=== PATIENT | female | born 1955 | race Caucasian/White ===

== ENCOUNTER → 2017-02-22 | Outpatient (CLI) | payer OTHER ==
[~2017-02-22] MED LIST: ASPI-515 PO; ATOR20TA9 PO; LISI-167 PO; SULF1TAB24 PO
== END | disposition home or self-care (01) ==
LOC: ROC 08:11
PROVIDERS: ATTEND Radiology Radiation Oncology
DX: C34.11 Malignant neoplasm of upper lobe, right bronchus or lung (principal); E04.1 Nontoxic single thyroid nodule; M85.652 Other cyst of bone, left thigh; J43.9 Emphysema, unspecified; E21.3 Hyperparathyroidism, unspecified; Z90.49 Acquired absence of other specified parts of digestive tract; Z90.12 Acquired absence of left breast and nipple
CPT/HCPCS: 99214; G0463

== ENCOUNTER 2017-03-19 10:37 | Day surgery (SDC) | payer OTHER ==
[~2017-03-19] VITALS: Ht 162.6 cm; Wt 86.7 kg
[2017-03-19] MEDS ORDERED: ATOR20TA9 PO (11:18)
[2017-03-19] MEDS ORDERED: LISI-167 PO (11:18)
[2017-03-19] MEDS ORDERED: ASPI-496 PO (11:19)
[2017-03-19] MEDS ORDERED: ONDA4TAB7 PO (11:20)
[2017-03-19] MEDS ORDERED: SODIUM CHLORIDE 0.9% 1,000 ML IV SCH (11:20)
[2017-03-19 11:21] VITALS: BP 150/87
[2017-03-19] MEDS ORDERED: CEFAZOLIN PMX 1GM/50ML 50 ML IV ONE (11:30)
[2017-03-19] MEDS ORDERED: CEFAZOLIN PMX 1GM/50ML 50 ML ONE (11:31)
[2017-03-19] MEDS ORDERED: LIDOCAINE 2%, 20ML ONE (11:57)
[2017-03-19] MEDS ORDERED: NALOXONE 1 MG/ML, 2ML ONE (12:05)
[2017-03-19] MEDS ORDERED: FLUMAZENIL 0.1 MG/1 ML, 5ML ONE (12:05)
[2017-03-19] MEDS ORDERED: FENTANYL PF 100 MCG/2ML ONE (12:05)
[2017-03-19] MEDS ORDERED: MIDAZOLAM 1 MG/ML, 5ML ONE (12:05)
== END 2017-03-19 14:15 ==
LOC: OUT 10:37
PROVIDERS: ATTEND Internal Medicine Hematology & Oncology
DX: Z45.2 Encounter for adjustment and management of vascular access device (principal); C34.90 Malignant neoplasm of unspecified part of unspecified bronchus or lung; Z88.6 Allergy status to analgesic agent; Z90.49 Acquired absence of other specified parts of digestive tract; Z90.12 Acquired absence of left breast and nipple; Z98.51 Tubal ligation status; Z98.890 Other specified postprocedural states
CPT/HCPCS: 36561; 76937; 77001; 99156; 99157; C1788; C1894; J0690; J1642; J2250; J3010; J3490; J7030; J2310

== ENCOUNTER → 2017-04-08 | Outpatient (CLI) | payer OTHER ==
[~2017-04-08] MED LIST changes: +ASPI-496 PO; +ONDA4TAB7 PO; +VISIPAQUE 270 MG/ML, 50ML BOTTLE ONE
== END | disposition home or self-care (01) ==
LOC: RAD 14:32
PROVIDERS: ATTEND Internal Medicine Hematology & Oncology
DX: Z45.2 Encounter for adjustment and management of vascular access device (principal); C34.11 Malignant neoplasm of upper lobe, right bronchus or lung
CPT/HCPCS: 36598; 76000; Q9966; J1642

== ENCOUNTER 2017-04-29 09:28 | Emergency (ER) | payer OTHER ==
[~2017-04-29] VITALS: Ht 162.6 cm; Wt 77.8 kg
[~2017-04-29 09:28] MED LIST changes: -VISIPAQUE 270 MG/ML, 50ML BOTTLE ONE
[2017-04-29] MEDS ORDERED: SODIUM CHLORIDE 0.9% 1,000 ML IV ONE (10:03)
[2017-04-29] MEDS ORDERED: ONDANSETRON 2MG/ML, 2ML ONE (10:16)
[2017-04-29] MEDS ORDERED: HYDROmorphone 2 MG/ML, 1ML ONE (10:16)
[2017-04-29] MEDS ORDERED: METOCLOPRAMIDE 5 MG/ML, 2ML ONE (10:23)
[2017-04-29] MEDS ORDERED: HYDROmorphone 1 MG/ML, 1ML IVPush PRN (10:30)
[2017-04-29] MEDS ORDERED: SODIUM CHLORIDE FLUSH 10ML SYR IVF ONE (10:30)
[2017-04-29] MEDS ORDERED: SODIUM CHLORIDE 0.9% 1,000ML IVBOLUS ONE (10:30)
[2017-04-29] MEDS ORDERED: METOCLOPRAMIDE 5 MG/ML, 2ML IVPush ONE (10:30)
[2017-04-29] MEDS ORDERED: ONDANSETRON 2MG/ML, 2ML IVPush ONE (10:30)
[2017-04-29 10:46] LABS: ALANINE AMINOTRANSFERASE 41 U/L (12-78); ALBUMIN 2.8 g/dL (3.4-5.0); ANION GAP 11 mmol/L (5-15); CALCIUM 10.5 mg/dL (8.5-10.1); CHLORIDE 104 mmol/L (98-107); CREATININE 0.85 mg/dL (0.55-1.02)
[2017-04-29 10:48] LABS: ALKALINE PHOSPHATASE 108 U/L (45-117); BILIRUBIN,TOTAL 0.7 mg/dL (0.2-1.0); TOTAL PROTEIN 7.2 g/dL (6.4-8.2)
[2017-04-29 10:53] LABS: MD YES; MEAN CORPUSCULAR HEMOGLOBIN 29.4 pg (27.0-34.8); MEAN CORPUSCULAR HGB CONC 34.4 g/dL (32.4-35.8); MEAN CORPUSCULAR VOLUME 85.4 fL (80-100); PLATELET COUNT 265 x10^3/uL (130-400); RED BLOOD COUNT 3.62 x10^6/uL (3.82-5.3); RED CELL DISTRIBUTION WIDTH 20.2 % (9.6-15.2)
[2017-04-29 10:57] LABS: BAND#(MANUAL) 0.06 x10^3/uL; BANDS%(MANUAL) 2 % (0-7); METAMYELOCYTES# (MANUAL) 0.03 x10^3/uL (0-0); METAMYELOCYTES% (MANUAL) 1 % (0-1)
[2017-04-29 10:58] LABS: LYMPH#(MANUAL) 0.44 x10^3/uL (1-3.4); LYMPHS% (MANUAL) 15 % (22-44); MONOS#(MANUAL) 0.73 x10^3/uL (0.3-2.7); MONOS% (MANUAL) 25 % (2-9); SEG#(MANUAL) 1.65 x10^3/uL (1.8-6.8); SEGS% (MANUAL) 57 % (42-75)
[2017-04-29 11:00] LABS: <PLATELET ESTIMATE> ADEQUATE; <PLT MORPHOLOGY> NORMAL PLT MORPH; ANISOCYTOSIS 1+; MICROCYTOSIS 1+
[2017-04-29 12:35] LABS: MICROSCOPIC INDICATED
[2017-04-29 12:36] LABS: CULTURE INDICATED? YES
[2017-04-29] MEDS ORDERED: CEFTRIAXONE PMX 1GM/50ML 50 ML ONE (13:15)
[2017-04-29] MEDS ORDERED: CEFTRIAXONE PMX 1GM/50ML 50 ML IV ONE (13:30)
[2017-04-29 14:21] VITALS: BP 114/74
== END 2017-04-29 14:24 | disposition home or self-care (01) ==
LOC: ED 13:56
DX: N30.90 Cystitis, unspecified without hematuria (principal); D70.1 Agranulocytosis secondary to cancer chemotherapy; R13.14 Dysphagia, pharyngoesophageal phase; C34.90 Malignant neoplasm of unspecified part of unspecified bronchus or lung; Z79.82 Long term (current) use of aspirin; Z90.49 Acquired absence of other specified parts of digestive tract
CPT/HCPCS: 36415; 70360; 71045; 80053; 81001; 83605; 85025; 87086; 93005; 96361; 96365; 96375; 99285; J0696; J1170; J2765; J7030

== ENCOUNTER 2017-05-15 12:13 | Emergency (ER) | payer OTHER | END 2017-05-15 12:49 | disposition left against medical advice (07) | LOC: ED 12:43 | DX: R11.10 Vomiting, unspecified (principal); Z53.21 Procedure and treatment not carried out due to patient leaving prior to being seen by health care provider ==

== ENCOUNTER 2017-05-15 17:04 | Inpatient (IN) | payer OTHER ==
[~2017-05-15] VITALS: Ht 162.6 cm; Wt 76.4 kg
[2017-05-15] MEDS ORDERED: SODIUM CHLORIDE 0.9% 1,000 ML IV ONE (17:55)
[2017-05-15] MEDS ORDERED: SODIUM CHLORIDE 0.9% 1,000ML IVBOLUS ONE (18:00)
[2017-05-15 18:15] LABS: MEAN CORPUSCULAR HEMOGLOBIN 29.8 pg (27.0-34.8); MEAN CORPUSCULAR HGB CONC 33.8 g/dL (32.4-35.8); MEAN CORPUSCULAR VOLUME 88.4 fL (80-100); RED BLOOD COUNT 3.75 x10^6/uL (3.82-5.3); RED CELL DISTRIBUTION WIDTH 24.4 % (9.6-15.2)
[2017-05-15 18:23] LABS: ALBUMIN 2.9 g/dL (3.4-5.0); ANION GAP 9 mmol/L (5-15); CHLORIDE 102 mmol/L (98-107)
[2017-05-15 18:35] LABS: MD YES; MEAN PLATELET VOLUME 7.7 fL (7.4-10.4); PLATELET COUNT 122 x10^3/uL (130-400)
[2017-05-15 18:38] LABS: BAND#(MANUAL) 0.12 x10^3/uL; BANDS%(MANUAL) 3 % (0-7); LYMPH#(MANUAL) 0.56 x10^3/uL (1-3.4); LYMPHS% (MANUAL) 14 % (22-44); MONOS% (MANUAL) 25 % (2-9); SEG#(MANUAL) 2.32 x10^3/uL (1.8-6.8); SEGS% (MANUAL) 58 % (42-75)
[2017-05-15 18:40] LABS: ANISOCYTOSIS 2+; OVALOCYTES 1+
[2017-05-15 18:41] LABS: POLYCHROMASIA 1+; SCHISTOCYTES 1+
[2017-05-15 18:42] LABS: MICROCYTOSIS 1+; SPHEROCYTES 1+
[2017-05-15 19:04] LABS: <PLATELET ESTIMATE> ADEQUATE; <PLT MORPHOLOGY> NORMAL PLT MORPH
[2017-05-15] MEDS ORDERED: OMNIPAQUE 350 MG/ML, 100ML BOTTLE ONE (21:05)
[2017-05-15] MEDS ORDERED: PANTOPRAZOLE 40 MG IV IVPush ONE (21:30)
[2017-05-15] MEDS ORDERED: PANTOPRAZOLE 40 MG IV ONE (21:59)
[2017-05-15 23:57] VITALS: BP 119/80
[2017-05-16] MEDS: D5%-0.45NACL+KCL 20MEQ 1,000 ML IV SCH ×2 (00:33→14:10)
[2017-05-16] MEDS: ONDANSETRON ODT 4 MG PO PRN (00:33)
[2017-05-16 02:01] VITALS: BP 105/69
[2017-05-16 05:11] LABS: ALANINE AMINOTRANSFERASE 12 U/L (12-78); ALBUMIN 2.3 g/dL (3.4-5.0); ANION GAP 10 mmol/L (5-15); CALCIUM 9.6 mg/dL (8.5-10.1); CHLORIDE 107 mmol/L (98-107); IRON LEVEL 56 mcg/dL (50-170)
[2017-05-16 05:17] LABS: % IRON SATURATION 32 % (20-55); ALKALINE PHOSPHATASE 101 U/L (45-117); BILIRUBIN,TOTAL 0.3 mg/dL (0.2-1.0); CREATININE 0.56 mg/dL (0.55-1.02); PREALBUMIN 8.4 mg/dL (20.0-40.0); TOTAL IRON BINDING CAPACITY 176 mcg/dL (250-450); TOTAL PROTEIN 5.7 g/dL (6.4-8.2)
[2017-05-16 07:15] VITALS: BP 105/62
[2017-05-16 13:03] VITALS: BP 101/67
[2017-05-16] MEDS ORDERED: FLUCONAZOLE 40 MG/ML ORAL SUSP PO ONE (13:30)
[2017-05-16] MEDS ORDERED: POTASSIUM CHLORIDE 20 MEQ in SODIUM CHLORIDE 0.9% 250 ML IV ONE (15:30)
[2017-05-16] MEDS: LIDOCAINE 2% VISCOUS 15 ML UDC MM SCH (16:39)
[2017-05-16] MEDS: SUCRALFATE 1 GM/10 ML UDC PO SCH ×2 (16:39→20:43)
[2017-05-16] MEDS: PANTOPRAZOLE 40 MG IV IVPush SCH (18:21)
[2017-05-16 19:57] VITALS: BP 108/65
[2017-05-17 01:05] VITALS: BP 109/65
[2017-05-17] MEDS: ONDANSETRON ODT 4 MG PO PRN (01:42)
[2017-05-17] MEDS: D5%-0.45NACL+KCL 20MEQ 1,000 ML IV SCH ×2 (02:25→14:34)
[2017-05-17 05:45] LABS: ANION GAP 7 mmol/L (5-15); CALCIUM 9.6 mg/dL (8.5-10.1); CHLORIDE 109 mmol/L (98-107)
[2017-05-17] MEDS: LIDOCAINE 2% VISCOUS 15 ML UDC MM SCH (07:00)
[2017-05-17] MEDS: SUCRALFATE 1 GM/10 ML UDC PO SCH ×4 (07:08→20:48)
[2017-05-17 08:14] VITALS: BP 129/72
[2017-05-17] MEDS ORDERED: POLYETHYLENE GLYCOL 17 GM PACKET NG ONE (08:30)
[2017-05-17] MEDS ORDERED: POTASSIUM PHOSPHATE 22 MEQ in SODIUM CHLORIDE 0.9% 500 ML IV ONE (08:30)
[2017-05-17] MEDS ORDERED: PANTOPRAZOLE 40 MG IV IVPush SCH (09:00)
[2017-05-17] MEDS: LACTULOSE 20 GM/30 ML UDC PO SCH ×2 (09:00→20:48)
[2017-05-17] MEDS: PANTOPRAZOLE 40 MG IV IVPush SCH (09:52)
[2017-05-17] MEDS: MAGNESIUM CHLORIDE 64 MG TABLET.DR PO SCH (09:53)
[2017-05-17] MEDS: FLUCONAZOLE 10 MG/ML ORAL SUSP PO SCH (09:53)
[2017-05-17] MEDS ORDERED: KETOROLAC 30 MG/1 ML IM PRN (12:00)
[2017-05-17] MEDS ORDERED: RANITIDINE PO SCH (12:00)
[2017-05-17] MEDS ORDERED: MAALOX/HYOSCYAMINE/LIDOCAINE 45 ML BTL PO ONE (12:00)
[2017-05-17 14:30] VITALS: BP 107/69
[2017-05-17] MEDS: MEGESTROL ORAL.SUSP 40 MG/ML PO SCH (14:36)
[2017-05-17] MEDS: CARBAMIDE PEROXIDE EAR DROPS 6.5%, 15ML EACH EAR SCH (14:36)
[2017-05-17] MEDS: SILVER SULF. CRM 1% , 25GM TP SCH (15:06)
[2017-05-17 19:56] VITALS: BP 115/76
[2017-05-18 01:42] VITALS: BP 132/66
[2017-05-18] MEDS: SILVER SULF. CRM 1% , 25GM TP SCH ×3 (02:15→19:57)
[2017-05-18] MEDS: RANITIDINE 15 MG/ML ORAL SOL PO SCH ×3 (02:15→19:53)
[2017-05-18] MEDS: D5%-0.45NACL+KCL 20MEQ 1,000 ML IV SCH (02:18)
[2017-05-18] MEDS: CARBAMIDE PEROXIDE EAR DROPS 6.5%, 15ML EACH EAR SCH ×3 (05:28→19:53)
[2017-05-18 05:49] LABS: MEAN CORPUSCULAR HEMOGLOBIN 30.3 pg (27.0-34.8); MEAN CORPUSCULAR HGB CONC 34.5 g/dL (32.4-35.8); MEAN CORPUSCULAR VOLUME 87.8 fL (80-100); RED BLOOD COUNT 3.06 x10^6/uL (3.82-5.3); RED CELL DISTRIBUTION WIDTH 24.8 % (9.6-15.2)
[2017-05-18 05:53] LABS: CALCIUM 9.6 mg/dL (8.5-10.1); CHLORIDE 112 mmol/L (98-107)
[2017-05-18 05:56] LABS: ANION GAP 6 mmol/L (5-15); CREATININE 0.55 mg/dL (0.55-1.02)
[2017-05-18 07:04] LABS: MEAN PLATELET VOLUME 8.1 fL (7.4-10.4); PLATELET COUNT 68 x10^3/uL (130-400)
[2017-05-18 07:05] LABS: BASOPHILS # (AUTO) 0.02 x10^3/uL (0-0.1); BASOPHILS % (AUTO) 0 % (0-1); EOSINOPHILS # (AUTO) 0.01 x10^3/uL (0-0.4); EOSINOPHILS % (AUTO) 0 % (1-7); LYMPHOCYTES # (AUTO) 0.55 x10^3/uL (1-3.4); LYMPHOCYTES % (AUTO) 15 % (22-44); MD MORPH REVIEW ONLY; MONOCYTES # (AUTO) 0.64 x10^3/uL (0.2-0.8); MONOCYTES % (AUTO) 18 % (2-9); NEUTROPHILS # (AUTO) 2.41 x10^3/uL (1.8-6.8); NEUTROPHILS % (AUTO) 67 % (42-75)
[2017-05-18 07:06] LABS: ANISOCYTOSIS 2+; MICROCYTOSIS 1+; OVALOCYTES 1+; POLYCHROMASIA 1+
[2017-05-18 07:07] LABS: <PLATELET ESTIMATE> DECREASED; <PLT MORPHOLOGY> NORMAL PLT MORPH
[2017-05-18 08:12] VITALS: BP 117/76
[2017-05-18] MEDS: LACTULOSE 20 GM/30 ML UDC PO SCH ×2 (08:28→19:52)
[2017-05-18] MEDS: SUCRALFATE 1 GM/10 ML UDC PO SCH ×4 (08:28→19:38)
[2017-05-18] MEDS: FLUCONAZOLE 10 MG/ML ORAL SUSP PO SCH (08:29)
[2017-05-18] MEDS: MEGESTROL ORAL.SUSP 40 MG/ML PO SCH (08:29)
[2017-05-18] MEDS: PANTOPRAZOLE 40 MG IV IVPush SCH (08:29)
[2017-05-18] MEDS: MAGNESIUM CHLORIDE 64 MG TABLET.DR PO SCH (08:30)
[2017-05-18 14:30] VITALS: BP 118/75
[2017-05-18 20:02] VITALS: BP 120/75
[2017-05-18] MEDS ORDERED: D5%-0.45NACL+KCL 20MEQ 1,000 ML IV SCH (23:56)
[2017-05-19 01:06] VITALS: BP 128/74
[2017-05-19 05:11] LABS: CHLORIDE 111 mmol/L (98-107)
[2017-05-19 05:18] LABS: ANION GAP 7 mmol/L (5-15); CALCIUM 10.1 mg/dL (8.5-10.1); CREATININE 0.59 mg/dL (0.55-1.02)
[2017-05-19 06:54] VITALS: BP 134/84
[2017-05-19] MEDS: SUCRALFATE 1 GM/10 ML UDC PO SCH ×4 (08:33→22:05)
[2017-05-19] MEDS: MAGNESIUM CHLORIDE 64 MG TABLET.DR PO SCH (08:33)
[2017-05-19] MEDS: MEGESTROL ORAL.SUSP 40 MG/ML PO SCH (08:34)
[2017-05-19] MEDS: CARBAMIDE PEROXIDE EAR DROPS 6.5%, 15ML EACH EAR SCH ×2 (08:34→20:48)
[2017-05-19] MEDS: FLUCONAZOLE 10 MG/ML ORAL SUSP PO SCH (08:34)
[2017-05-19] MEDS: PANTOPRAZOLE 40 MG IV IVPush SCH (08:34)
[2017-05-19] MEDS: RANITIDINE 15 MG/ML ORAL SOL PO SCH ×2 (08:35→20:48)
[2017-05-19] MEDS: SILVER SULF. CRM 1% , 25GM TP SCH ×2 (08:35→20:48)
[2017-05-19] MEDS ORDERED: PHENOL THROAT SPRAY BOTTLE MM PRN (09:00)
[2017-05-19 13:13] VITALS: BP 103/69
[2017-05-19 18:59] VITALS: BP 104/64
[2017-05-20 02:59] VITALS: BP 110/71
[2017-05-20] MEDS: SUCRALFATE 1 GM/10 ML UDC PO SCH ×2 (06:28→13:17)
[2017-05-20 07:02] VITALS: BP 131/91
[2017-05-20] MEDS: MAGNESIUM CHLORIDE 64 MG TABLET.DR PO SCH (09:35)
[2017-05-20] MEDS: FLUCONAZOLE 10 MG/ML ORAL SUSP PO SCH (09:35)
[2017-05-20] MEDS: CARBAMIDE PEROXIDE EAR DROPS 6.5%, 15ML EACH EAR SCH (09:35)
[2017-05-20] MEDS: RANITIDINE 15 MG/ML ORAL SOL PO SCH (09:35)
[2017-05-20] MEDS: PANTOPRAZOLE 40 MG IV IVPush SCH (09:36)
[2017-05-20] MEDS: SILVER SULF. CRM 1% , 25GM TP SCH (09:36)
[2017-05-20] MEDS ORDERED: MIRT15TA6 PO (12:10)
[2017-05-20] MEDS ORDERED: PANT40TA5 PO (12:10)
[2017-05-20] MEDS ORDERED: FLUC10SU2 PO (12:10)
[2017-05-20] MEDS ORDERED: SUCR1ORA5 PO (12:10)
[2017-05-20] MEDS ORDERED: SILV25CR6 TP (12:10)
[2017-05-20] MEDS ORDERED: RANI15SY PO (12:10)
[2017-05-20] MEDS ORDERED: CARB-136 EACH EAR (12:10)
[2017-05-20 12:37] VITALS: BP 118/79
[2017-05-20] MEDS ORDERED: MIRTAZAPINE 15 MG TABLET PO SCH (21:00)
[2017-05-21] MEDS ORDERED: PANTOPROZOLE 40MG TABLET PO SCH (07:30)
== END 2017-05-20 13:40 | disposition home or self-care (01) | DRG 841 ==
LOC: ED 20:37 → EDIP 22:42 → 3NW 23:06
PROVIDERS: ADMIT Family Medicine; ATTEND Family Medicine
DX: C77.0 Secondary and unspecified malignant neoplasm of lymph nodes of head, face and neck (principal); E44.0 Moderate protein-calorie malnutrition; K22.0 Achalasia of cardia; C79.89 Secondary malignant neoplasm of other specified sites; T66.XXXA Radiation sickness, unspecified, initial encounter; R13.14 Dysphagia, pharyngoesophageal phase; C34.90 Malignant neoplasm of unspecified part of unspecified bronchus or lung; K20.8 Other esophagitis; I10 Essential (primary) hypertension; Y84.2 Radiological procedure and radiotherapy as the cause of abnormal reaction of the patient, or of later complication, without mention of misadventure at the time of the procedure; E04.2 Nontoxic multinodular goiter; R59.1 Generalized enlarged lymph nodes; Z68.29 Body mass index [BMI] 29.0-29.9, adult; Z86.73 Personal history of transient ischemic attack (TIA), and cerebral infarction without residual deficits; Z87.891 Personal history of nicotine dependence; Z92.3 Personal history of irradiation; Z90.49 Acquired absence of other specified parts of digestive tract; Z90.10 Acquired absence of unspecified breast and nipple; Z88.5 Allergy status to narcotic agent; Z72.89 Other problems related to lifestyle; Z80.1 Family history of malignant neoplasm of trachea, bronchus and lung; Z80.42 Family history of malignant neoplasm of prostate; Y92.89 Other specified places as the place of occurrence of the external cause; T20.27XA Burn of second degree of neck, initial encounter; Z66 Do not resuscitate
CPT/HCPCS: 36415; 70491; 71045; 71260; 74220; 74230; 80048; 80053; 82040; 83540; 83550; 83735; 84100; 84134; 85025; 87081; 87880; 96361; 96374; J1885; J3480; Q0162; Q9967; C9113; J7030; J7040; J7050

== ENCOUNTER 2018-01-06 13:49 | Inpatient (IN) | payer OTHER ==
[~2018-01-06] VITALS: Ht 162.6 cm; Wt 79.8 kg
[~2018-01-06 13:49] MED LIST changes: +CARB-136 EACH EAR; +FLUC10SU2 PO; +MIRT15TA6 PO; +PANT40TA5 PO; +RANI15SY PO; +SILV25CR6 TP; +SUCR1ORA5 PO
[2018-01-06 14:34] LABS: BASOPHILS # (AUTO) 0.04 x10^3/uL (0-0.1); BASOPHILS % (AUTO) 0 % (0-1); EOSINOPHILS # (AUTO) 0.02 x10^3/uL (0-0.4); EOSINOPHILS % (AUTO) 0 % (1-7); LYMPHOCYTES # (AUTO) 1.21 x10^3/uL (1-3.4); LYMPHOCYTES % (AUTO) 8 % (22-44); MD NO; MEAN CORPUSCULAR HEMOGLOBIN 28.2 pg (27.0-34.8); MEAN CORPUSCULAR HGB CONC 33.2 g/dL (32.4-35.8); MEAN CORPUSCULAR VOLUME 84.8 fL (80-100); MONOCYTES % (AUTO) 6 % (2-9); NEUTROPHILS # (AUTO) 12.47 x10^3/uL (1.8-6.8); NEUTROPHILS % (AUTO) 85 % (42-75); PLATELET COUNT 135 x10^3/uL (130-400); RED BLOOD COUNT 4.79 x10^6/uL (3.82-5.3); RED CELL DISTRIBUTION WIDTH 17.2 % (9.6-15.2)
[2018-01-06 14:46] LABS: ALBUMIN 3.2 g/dL (3.4-5.0); ANION GAP 10 mmol/L (5-15); CALCIUM 11.2 mg/dL (8.5-10.1); CHLORIDE 105 mmol/L (98-107)
[2018-01-06 14:50] LABS: ALANINE AMINOTRANSFERASE 48 U/L (12-78); ALKALINE PHOSPHATASE 187 U/L (45-117); BILIRUBIN,TOTAL 0.3 mg/dL (0.2-1.0); CREATININE 1.27 mg/dL (0.55-1.02); TOTAL PROTEIN 7.7 g/dL (6.4-8.2)
[2018-01-06] MEDS ORDERED: ONDANSETRON ODT 4 MG PO ONE (17:00)
[2018-01-06] MEDS ORDERED: SODIUM CHLORIDE 0.9% 1,000ML IVBOLUS ONE (17:00)
[2018-01-06 17:24] LABS: BASOPHILS # (AUTO) 0.07 x10^3/uL (0-0.1); BASOPHILS % (AUTO) 1 % (0-1); EOSINOPHILS # (AUTO) 0.08 x10^3/uL (0-0.4); EOSINOPHILS % (AUTO) 1 % (1-7); LYMPHOCYTES # (AUTO) 1.37 x10^3/uL (1-3.4); LYMPHOCYTES % (AUTO) 9 % (22-44); MD NO; MEAN CORPUSCULAR HEMOGLOBIN 27.8 pg (27.0-34.8); MEAN CORPUSCULAR HGB CONC 33.3 g/dL (32.4-35.8); MEAN CORPUSCULAR VOLUME 83.7 fL (80-100); MEAN PLATELET VOLUME 7.9 fL (7.4-10.4); MONOCYTES # (AUTO) 1.21 x10^3/uL (0.2-0.8); MONOCYTES % (AUTO) 8 % (2-9); NEUTROPHILS # (AUTO) 12.58 x10^3/uL (1.8-6.8); NEUTROPHILS % (AUTO) 82 % (42-75); PLATELET COUNT 134 x10^3/uL (130-400); RED BLOOD COUNT 4.69 x10^6/uL (3.82-5.3)
[2018-01-06 17:32] LABS: ALANINE AMINOTRANSFERASE 46 U/L (12-78); ALBUMIN 3.2 g/dL (3.4-5.0); ANION GAP 10 mmol/L (5-15); CALCIUM 10.7 mg/dL (8.5-10.1); CHLORIDE 105 mmol/L (98-107); CREATININE 1.06 mg/dL (0.55-1.02)
[2018-01-06 17:34] LABS: ALKALINE PHOSPHATASE 184 U/L (45-117); BILIRUBIN,TOTAL 0.5 mg/dL (0.2-1.0); TOTAL PROTEIN 7.7 g/dL (6.4-8.2)
[2018-01-06] MEDS ORDERED: HYDR-3240 PO (18:04)
[2018-01-06] MEDS ORDERED: PIPERACILLIN/TAZO/PMX 3.375GM 50 ML IV ONE (18:30)
[2018-01-06] MEDS ORDERED: PIPERACILLIN/TAZO/PMX 3.375GM 50 ML ONE (19:06)
[2018-01-06] MEDS ORDERED: LABETALOL 5MG/ML, 20ML IVPush PRN (19:30)
[2018-01-06] MEDS ORDERED: ACETAMINOPHEN 325 MG TABLET PO PRN (19:30)
[2018-01-06] MEDS ORDERED: BISACODYL 10 MG SUPP PR PRN (19:30)
[2018-01-06] MEDS ORDERED: ONDANSETRON 2MG/ML, 2ML IVPush PRN (19:30)
[2018-01-06] MEDS ORDERED: POLYETHYLENE GLYCOL 17 GM PACKET PO PRN (19:30)
[2018-01-06] MEDS: SODIUM CHLORIDE 0.9% 1,000 ML IV SCH (20:47)
[2018-01-06 20:50] VITALS: BP 119/78
[2018-01-06] MEDS: ONDANSETRON ODT 4 MG PO PRN (20:52)
[2018-01-06] MEDS: HEPARIN 5,000 UNITS/ML, 1ML SQ SCH (21:19)
[2018-01-06] MEDS: HYDROcodone/APAP 5/325 TABLET PO PRN (21:45)
[2018-01-06 22:27] LABS: CULTURE INDICATED? YES; MICROSCOPIC INDICATED
[2018-01-06] MEDS: AMPICILLIN/SULBACTAM 1,500 MG in SODIUM CHLORIDE 0.9% 50 ML IV SCH (23:46)
[2018-01-07 03:17] VITALS: BP 123/79
[2018-01-07] MEDS: HEPARIN 5,000 UNITS/ML, 1ML SQ SCH ×3 (05:19→21:10)
[2018-01-07 05:37] LABS: BASOPHILS % (AUTO) 1 % (0-1); EOSINOPHILS % (AUTO) 1 % (1-7); LYMPHOCYTES % (AUTO) 12 % (22-44); MD NO; MEAN CORPUSCULAR HEMOGLOBIN 27.9 pg (27.0-34.8); MEAN CORPUSCULAR HGB CONC 32.7 g/dL (32.4-35.8); MEAN CORPUSCULAR VOLUME 85.3 fL (80-100); MEAN PLATELET VOLUME 8.3 fL (7.4-10.4); MONOCYTES # (AUTO) 1.23 x10^3/uL (0.2-0.8); MONOCYTES % (AUTO) 10 % (2-9); NEUTROPHILS # (AUTO) 9.27 x10^3/uL (1.8-6.8); NEUTROPHILS % (AUTO) 76 % (42-75); PLATELET COUNT 125 x10^3/uL (130-400); RED BLOOD COUNT 4.19 x10^6/uL (3.82-5.3); RED CELL DISTRIBUTION WIDTH 17.2 % (9.6-15.2)
[2018-01-07 05:43] LABS: ALBUMIN 2.7 g/dL (3.4-5.0); ANION GAP 6 mmol/L (5-15); CALCIUM 10.6 mg/dL (8.5-10.1); CHLORIDE 110 mmol/L (98-107)
[2018-01-07 05:45] LABS: ALANINE AMINOTRANSFERASE 41 U/L (12-78); ALKALINE PHOSPHATASE 175 U/L (45-117); BILIRUBIN,TOTAL 0.6 mg/dL (0.2-1.0); CREATININE 1.06 mg/dL (0.55-1.02); TOTAL PROTEIN 6.7 g/dL (6.4-8.2)
[2018-01-07] MEDS: AMPICILLIN/SULBACTAM 1,500 MG in SODIUM CHLORIDE 0.9% 50 ML IV SCH ×3 (06:15→18:31)
[2018-01-07 07:46] VITALS: BP 122/74
[2018-01-07] MEDS: SODIUM CHLORIDE 0.9% 1,000 ML IV SCH ×2 (08:20→18:32)
[2018-01-07] MEDS: SENNA/DOCUSATE TABLET PO SCH (08:21)
[2018-01-07] MEDS: HYDROcodone/APAP 5/325 TABLET PO PRN ×2 (08:40→16:20)
[2018-01-07 16:00] VITALS: BP 114/69
[2018-01-07 19:10] VITALS: BP 105/60
[2018-01-08] MEDS: HYDROcodone/APAP 5/325 TABLET PO PRN ×4 (00:28→20:17)
[2018-01-08] MEDS: AMPICILLIN/SULBACTAM 1,500 MG in SODIUM CHLORIDE 0.9% 50 ML IV SCH ×2 (00:29→06:12)
[2018-01-08 02:15] VITALS: BP 102/56
[2018-01-08] MEDS: SODIUM CHLORIDE 0.9% 1,000 ML IV SCH ×2 (04:27→16:50)
[2018-01-08] MEDS: HEPARIN 5,000 UNITS/ML, 1ML SQ SCH ×3 (06:15→21:26)
[2018-01-08] MEDS: ONDANSETRON ODT 4 MG PO PRN ×2 (06:28→20:10)
[2018-01-08 06:55] LABS: MEAN CORPUSCULAR HEMOGLOBIN 27.6 pg (27.0-34.8); MEAN CORPUSCULAR HGB CONC 32.6 g/dL (32.4-35.8); MEAN CORPUSCULAR VOLUME 84.7 fL (80-100); MEAN PLATELET VOLUME 8.6 fL (7.4-10.4); PLATELET COUNT 118 x10^3/uL (130-400); RED BLOOD COUNT 3.87 x10^6/uL (3.82-5.3); RED CELL DISTRIBUTION WIDTH 16.8 % (9.6-15.2)
[2018-01-08 07:00] LABS: ALBUMIN 2.4 g/dL (3.4-5.0); ANION GAP 5 mmol/L (5-15); CALCIUM 10.4 mg/dL (8.5-10.1); CHLORIDE 111 mmol/L (98-107)
[2018-01-08 07:04] LABS: ALANINE AMINOTRANSFERASE 24 U/L (12-78); ALKALINE PHOSPHATASE 150 U/L (45-117); BILIRUBIN,TOTAL 0.5 mg/dL (0.2-1.0); CREATININE 0.78 mg/dL (0.55-1.02); TOTAL PROTEIN 6.1 g/dL (6.4-8.2)
[2018-01-08 07:12] LABS: BASOPHILS # (AUTO) 0.05 x10^3/uL (0-0.1); BASOPHILS % (AUTO) 1 % (0-1); EOSINOPHILS # (AUTO) 0.21 x10^3/uL (0-0.4); EOSINOPHILS % (AUTO) 3 % (1-7); LYMPHOCYTES # (AUTO) 1.32 x10^3/uL (1-3.4); LYMPHOCYTES % (AUTO) 17 % (22-44); MD NO; MONOCYTES # (AUTO) 0.88 x10^3/uL (0.2-0.8); MONOCYTES % (AUTO) 11 % (2-9); NEUTROPHILS # (AUTO) 5.26 x10^3/uL (1.8-6.8); NEUTROPHILS % (AUTO) 68 % (42-75)
[2018-01-08 07:50] VITALS: BP 107/58
[2018-01-08] MEDS: SENNA/DOCUSATE TABLET PO SCH (09:58)
[2018-01-08] MEDS: AMOXICILLIN/CLAV 875-125MG TABLET PO SCH ×2 (09:58→21:23)
[2018-01-08 14:48] VITALS: BP 132/70
[2018-01-08 19:06] VITALS: BP 129/72
[2018-01-09] MEDS: SODIUM CHLORIDE 0.9% 1,000 ML IV SCH ×3 (02:34→23:56)
[2018-01-09] MEDS: HYDROcodone/APAP 5/325 TABLET PO PRN ×3 (02:36→19:57)
[2018-01-09 02:45] VITALS: BP 121/69
[2018-01-09] MEDS: HEPARIN 5,000 UNITS/ML, 1ML SQ SCH ×3 (05:51→21:36)
[2018-01-09 07:25] VITALS: BP 135/67
[2018-01-09] MEDS: SENNA/DOCUSATE TABLET PO SCH ×2 (09:00→09:23)
[2018-01-09] MEDS: AMOXICILLIN/CLAV 875-125MG TABLET PO SCH ×2 (09:22→21:33)
[2018-01-09 13:07] VITALS: BP 134/66
[2018-01-09 14:47] VITALS: BP 141/79
[2018-01-09 19:18] VITALS: BP 151/75
[2018-01-09] MEDS: ONDANSETRON ODT 4 MG PO PRN (19:57)
[2018-01-10 03:30] VITALS: BP 142/75
[2018-01-10] MEDS: ONDANSETRON ODT 4 MG PO PRN (03:31)
[2018-01-10] MEDS: HYDROcodone/APAP 5/325 TABLET PO PRN ×3 (03:31→20:14)
[2018-01-10] MEDS: HEPARIN 5,000 UNITS/ML, 1ML SQ SCH ×2 (06:00→14:14)
[2018-01-10 07:23] VITALS: BP 132/71
[2018-01-10] MEDS: SENNA/DOCUSATE TABLET PO SCH (08:00)
[2018-01-10] MEDS: SODIUM CHLORIDE 0.9% 1,000 ML IV SCH (10:00)
[2018-01-10] MEDS: AMOXICILLIN/CLAV 875-125MG TABLET PO SCH ×2 (10:35→20:14)
[2018-01-10] MEDS: SERTRALINE 50MG TABLET PO SCH (14:12)
[2018-01-10 14:25] VITALS: BP 140/82
[2018-01-10] MEDS: ENOXAPARIN 80 MG/0.8 ML SQ SCH (17:32)
[2018-01-10 18:26] VITALS: BP 131/85
[2018-01-11 00:25] VITALS: BP 144/85
[2018-01-11] MEDS: HYDROcodone/APAP 5/325 TABLET PO PRN ×2 (03:38→19:30)
[2018-01-11] MEDS: ENOXAPARIN 80 MG/0.8 ML SQ SCH ×2 (05:36→16:50)
[2018-01-11 07:36] VITALS: BP 143/84
[2018-01-11 07:46] LABS: ANION GAP 11 mmol/L (5-15); CHLORIDE 110 mmol/L (98-107); CREATININE 0.55 mg/dL (0.55-1.02)
[2018-01-11] MEDS: SERTRALINE 50MG TABLET PO SCH (08:39)
[2018-01-11] MEDS: SENNA/DOCUSATE TABLET PO SCH (08:39)
[2018-01-11] MEDS: AMOXICILLIN/CLAV 875-125MG TABLET PO SCH ×2 (08:39→19:30)
[2018-01-11 13:28] VITALS: BP 137/88
[2018-01-11 19:06] VITALS: BP 144/94
[2018-01-12 02:16] VITALS: BP 125/74
[2018-01-12] MEDS: HYDROcodone/APAP 5/325 TABLET PO PRN ×3 (03:40→17:37)
[2018-01-12] MEDS: ENOXAPARIN 80 MG/0.8 ML SQ SCH ×2 (05:02→17:13)
[2018-01-12] MEDS: SERTRALINE 50MG TABLET PO SCH (08:01)
[2018-01-12] MEDS: AMOXICILLIN/CLAV 875-125MG TABLET PO SCH ×2 (08:01→20:14)
[2018-01-12] MEDS: SENNA/DOCUSATE TABLET PO SCH (08:02)
[2018-01-12 09:06] VITALS: BP 136/74
[2018-01-12] MEDS: ONDANSETRON ODT 4 MG PO PRN (13:38)
[2018-01-12 15:14] VITALS: BP 112/66
[2018-01-12 20:01] VITALS: BP 123/68
[2018-01-13] MEDS: HYDROcodone/APAP 5/325 TABLET PO PRN ×3 (00:22→16:24)
[2018-01-13 00:24] VITALS: BP 133/68
[2018-01-13] MEDS: ENOXAPARIN 80 MG/0.8 ML SQ SCH ×2 (04:39→16:24)
[2018-01-13] MEDS ORDERED: CATHFLO-ALTEPLASE 2 MG/2 ML CATHFLUSH ONE (07:30)
[2018-01-13] MEDS: AMOXICILLIN/CLAV 875-125MG TABLET PO SCH (07:33)
[2018-01-13] MEDS: SENNA/DOCUSATE TABLET PO SCH (07:34)
[2018-01-13] MEDS: SERTRALINE 50MG TABLET PO SCH (07:34)
[2018-01-13 07:35] VITALS: BP 123/68
[2018-01-13] MEDS: ONDANSETRON ODT 4 MG PO PRN (07:36)
[2018-01-13] MEDS ORDERED: ENOX80SY4 SQ (12:19)
[2018-01-13] MEDS ORDERED: SERT50TA5 PO (12:19)
[2018-01-13 13:42] VITALS: BP 107/52
== END 2018-01-13 17:15 | DRG 871 ==
LOC: ED 19:04 → OBSVTOIN 19:09 → EDIP 19:09 → ED 19:41 → 3NW 19:57
PROVIDERS: ADMIT Family Medicine; ATTEND Family Medicine
DX: A41.9 Sepsis, unspecified organism (principal); J69.0 Pneumonitis due to inhalation of food and vomit; N17.0 Acute kidney failure with tubular necrosis; J15.9 Unspecified bacterial pneumonia; C34.90 Malignant neoplasm of unspecified part of unspecified bronchus or lung; E46 Unspecified protein-calorie malnutrition; J44.0 Chronic obstructive pulmonary disease with (acute) lower respiratory infection; N39.0 Urinary tract infection, site not specified; M25.511 Pain in right shoulder; F43.20 Adjustment disorder, unspecified; E83.52 Hypercalcemia; F32.9 Major depressive disorder, single episode, unspecified; G89.29 Other chronic pain; K22.2 Esophageal obstruction; R31.29 Other microscopic hematuria; Z91.19 Patient's noncompliance with other medical treatment and regimen; Z87.891 Personal history of nicotine dependence; Z86.73 Personal history of transient ischemic attack (TIA), and cerebral infarction without residual deficits; Z92.3 Personal history of irradiation; Z85.850 Personal history of malignant neoplasm of thyroid; Z85.118 Personal history of other malignant neoplasm of bronchus and lung; Q85.00 Neurofibromatosis, unspecified; Z88.6 Allergy status to analgesic agent; Z90.49 Acquired absence of other specified parts of digestive tract; Z98.51 Tubal ligation status; Z90.10 Acquired absence of unspecified breast and nipple; Z68.30 Body mass index [BMI] 30.0-30.9, adult
CPT/HCPCS: 36415; 71046; 71250; 80048; 80053; 81001; 83605; 83690; 84145; 85025; 87040; 87086; 96361; 96365; 99285; G0378; J1644; J1650; J2543; J2997; Q0162; J0295; J7030

== ENCOUNTER 2018-02-20 04:30 | Inpatient (IN) | payer OTHER ==
[~2018-02-20] VITALS: Ht 162.6 cm; Wt 73.0 kg
[~2018-02-20 04:30] MED LIST changes: +ENOX80SY4 SQ; +HYDR-3240 PO; +SERT50TA5 PO
[2018-02-20] MEDS ORDERED: SODIUM CHLORIDE 0.9% 1,000 ML IV ONE ×2 (05:13→07:13)
[2018-02-20] MEDS ORDERED: SERT100T5 PO (05:16)
[2018-02-20] MEDS ORDERED: NITR100C PO (05:16)
[2018-02-20] MEDS ORDERED: APIX2.5T PO (05:16)
[2018-02-20] MEDS ORDERED: SODIUM CHLORIDE 0.9% 1,000ML IVBOLUS ONE ×2 (05:30→07:30)
[2018-02-20] MEDS ORDERED: SODIUM CHLORIDE FLUSH 10ML SYR IVF ONE (05:30)
[2018-02-20] MEDS ORDERED: ONDANSETRON ODT 4 MG PO ONE (05:30)
[2018-02-20] MEDS ORDERED: FAMOTIDINE 20 MG/2 ML IVP ONE (05:30)
[2018-02-20] MEDS ORDERED: FAMOTIDINE 20 MG/2 ML ONE (05:35)
[2018-02-20] MEDS ORDERED: HYDROmorphone 2 MG/ML, 1ML ONE ×3 (05:35→10:59)
[2018-02-20] MEDS ORDERED: ONDANSETRON 2MG/ML, 2ML ONE (05:35)
[2018-02-20] MEDS: HYDROmorphone 2 MG/ML, 1ML IVPush PRN ×4 (05:49→22:49)
[2018-02-20 06:12] LABS: ALANINE AMINOTRANSFERASE 17 U/L (12-78); ALBUMIN 3.4 g/dL (3.4-5.0); ANION GAP 12 mmol/L (5-15); CALCIUM 10.8 mg/dL (8.5-10.1); CHLORIDE 105 mmol/L (98-107); CREATININE 1.09 mg/dL (0.55-1.02)
[2018-02-20 06:17] LABS: ALKALINE PHOSPHATASE 135 U/L (45-117); BILIRUBIN,TOTAL 0.3 mg/dL (0.2-1.0); TOTAL PROTEIN 7.3 g/dL (6.4-8.2); TROPONIN I < 0.015 ng/mL (0.000-0.045)
[2018-02-20 06:19] LABS: MEAN CORPUSCULAR HEMOGLOBIN 27.5 pg (27.0-34.8); MEAN CORPUSCULAR HGB CONC 32.6 g/dL (32.4-35.8); MEAN CORPUSCULAR VOLUME 84.4 fL (80-100); RED BLOOD COUNT 4.72 x10^6/uL (3.82-5.3); RED CELL DISTRIBUTION WIDTH 18.2 % (9.6-15.2)
[2018-02-20 06:33] LABS: MEAN PLATELET VOLUME 9.2 fL (7.4-10.4); PLATELET COUNT 96 x10^3/uL (130-400)
[2018-02-20 06:36] LABS: BASOPHILS # (AUTO) 0.01 x10^3/uL (0-0.1); BASOPHILS % (AUTO) 0 % (0-1); EOSINOPHILS # (AUTO) 0.03 x10^3/uL (0-0.4); EOSINOPHILS % (AUTO) 0 % (1-7); LYMPHOCYTES # (AUTO) 1.07 x10^3/uL (1-3.4); LYMPHOCYTES % (AUTO) 8 % (22-44); MD SCAN; MONOCYTES # (AUTO) 0.21 x10^3/uL (0.2-0.8); MONOCYTES % (AUTO) 2 % (2-9); NEUTROPHILS # (AUTO) 12.39 x10^3/uL (1.8-6.8); NEUTROPHILS % (AUTO) 90 % (42-75)
[2018-02-20] MEDS ORDERED: OMNIPAQUE 350 MG/ML, 100ML BOTTLE ONE (06:45)
[2018-02-20] MEDS ORDERED: OMNIPAQUE 350 MG/ML, 75ML BOTTLE ONE (07:55)
[2018-02-20 08:30] LABS: MICROSCOPIC INDICATED
[2018-02-20 08:38] LABS: CULTURE INDICATED? YES
[2018-02-20] MEDS ORDERED: PIPERACILLIN/TAZO/PMX 3.375GM 50 ML ONE (08:41)
[2018-02-20] MEDS ORDERED: LACTATED RINGERS 1,000 ML IV SCH (09:00)
[2018-02-20] MEDS ORDERED: ACETAMINOPHEN 325 MG TABLET PO PRN (09:00)
[2018-02-20] MEDS ORDERED: ONDANSETRON ODT 4 MG PO PRN (09:00)
[2018-02-20] MEDS ORDERED: hydrALAzine 20 MG/ML, 1ML IVPush PRN (09:00)
[2018-02-20] MEDS ORDERED: PIPERACILLIN/TAZO/PMX 3.375GM 50 ML IVPB ONE (09:00)
[2018-02-20] MEDS ORDERED: LABETALOL 5MG/ML, 20ML IVPush PRN (09:00)
[2018-02-20] MEDS ORDERED: APIXABAN 2.5 MG TABLET PO SCH (09:00)
[2018-02-20] MEDS ORDERED: ONDANSETRON 2MG/ML, 2ML IVPush PRN (09:00)
[2018-02-20] MEDS: SODIUM CHLORIDE FLUSH 10ML SYR IVF SCH ×2 (09:00→21:00)
[2018-02-20] MEDS ORDERED: ENALAPRILAT 1.25 MG/ML, 2ML IVPush PRN (09:00)
[2018-02-20] MEDS: SERTRALINE 100MG TABLET PO SCH (10:39)
[2018-02-20 11:00] VITALS: BP 181/104
[2018-02-20] MEDS ORDERED: HYDROmorphone 1 MG/ML, 1ML IV ONE (11:00)
[2018-02-20 12:45] VITALS: BP 138/83
[2018-02-20] MEDS ORDERED: HYDROcodone/APAP 5/325 TABLET PO PRN (13:30)
[2018-02-20 14:30] VITALS: BP 150/84
[2018-02-20] MEDS ORDERED: LIDOCAINE-MPF 1%, 5ML ONE (14:34)
[2018-02-20] MEDS ORDERED: ALBUTEROL/IPRATROPIUM 2.5MG/0.5MG, 3 ML NPPB PRN (15:00)
[2018-02-20 16:05] LABS: ANION GAP 12 mmol/L (5-15); CALCIUM 10.4 mg/dL (8.5-10.1); CHLORIDE 109 mmol/L (98-107); CREATININE 0.97 mg/dL (0.55-1.02)
[2018-02-20] MEDS: CEFTRIAXONE PMX 1GM/50ML 50 ML IV SCH (17:37)
[2018-02-20 20:31] VITALS: BP 163/84
[2018-02-20] MEDS: APIXABAN 5 MG TABLET PO SCH (22:25)
[2018-02-21 02:32] VITALS: BP 165/81
[2018-02-21] MEDS: LACTATED RINGERS 1,000 ML IV SCH ×2 (02:39→15:40)
[2018-02-21] MEDS: HYDROmorphone 2 MG/ML, 1ML IVPush PRN ×6 (02:39→21:29)
[2018-02-21 03:26] LABS: MEAN CORPUSCULAR HGB CONC 32.6 g/dL (32.4-35.8); MEAN CORPUSCULAR VOLUME 85.8 fL (80-100); RED BLOOD COUNT 3.97 x10^6/uL (3.82-5.3); RED CELL DISTRIBUTION WIDTH 17.8 % (9.6-15.2)
[2018-02-21 03:33] LABS: ANION GAP 8 mmol/L (5-15); CALCIUM 10.3 mg/dL (8.5-10.1); CHLORIDE 111 mmol/L (98-107); CREATININE 0.82 mg/dL (0.55-1.02)
[2018-02-21 03:39] LABS: BASOPHILS # (AUTO) 0.06 x10^3/uL (0-0.1); BASOPHILS % (AUTO) 0 % (0-1); EOSINOPHILS # (AUTO) 0.02 x10^3/uL (0-0.4); EOSINOPHILS % (AUTO) 0 % (1-7); LYMPHOCYTES # (AUTO) 0.69 x10^3/uL (1-3.4); LYMPHOCYTES % (AUTO) 4 % (22-44); MD SCAN; MEAN PLATELET VOLUME 8.5 fL (7.4-10.4); MONOCYTES # (AUTO) 1.61 x10^3/uL (0.2-0.8); MONOCYTES % (AUTO) 9 % (2-9); NEUTROPHILS # (AUTO) 15.87 x10^3/uL (1.8-6.8); NEUTROPHILS % (AUTO) 87 % (42-75); PLATELET COUNT 78 x10^3/uL (130-400)
[2018-02-21 07:45] VITALS: BP 155/85
[2018-02-21] MEDS: APIXABAN 5 MG TABLET PO SCH ×2 (08:59→21:29)
[2018-02-21] MEDS: LISINOPRIL 10 MG TABLET PO SCH (08:59)
[2018-02-21] MEDS: SERTRALINE 100MG TABLET PO SCH (08:59)
[2018-02-21] MEDS: SODIUM CHLORIDE FLUSH 10ML SYR IVF SCH ×2 (09:00→21:29)
[2018-02-21 13:35] LABS: TOTAL PROTEIN 5.9 g/dL (6.4-8.2)
[2018-02-21 14:30] VITALS: BP 112/76
[2018-02-21] MEDS: CEFTRIAXONE PMX 1GM/50ML 50 ML IV SCH (17:05)
[2018-02-21] MEDS ORDERED: HYDROcodone/APAP 5/325 TABLET PO PRN (17:30)
[2018-02-21 20:28] VITALS: BP 92/61
[2018-02-22 00:37] VITALS: BP 98/59
[2018-02-22] MEDS: LACTATED RINGERS 1,000 ML IV SCH ×4 (00:37→20:50)
[2018-02-22 04:18] VITALS: BP 119/78
[2018-02-22] MEDS: HYDROmorphone 2 MG/ML, 1ML IVPush PRN ×5 (04:28→21:39)
[2018-02-22 06:15] LABS: MEAN CORPUSCULAR HGB CONC 32.6 g/dL (32.4-35.8); MEAN CORPUSCULAR VOLUME 85.9 fL (80-100); MEAN PLATELET VOLUME 9.1 fL (7.4-10.4); PLATELET COUNT 78 x10^3/uL (130-400); RED BLOOD COUNT 3.93 x10^6/uL (3.82-5.3); RED CELL DISTRIBUTION WIDTH 18.3 % (9.6-15.2)
[2018-02-22 06:16] LABS: ANION GAP 7 mmol/L (5-15); CHLORIDE 114 mmol/L (98-107)
[2018-02-22 06:58] LABS: MD YES
[2018-02-22 06:59] LABS: BAND#(MANUAL) 2.74 x10^3/uL; BANDS%(MANUAL) 8 % (0-7); LYMPH#(MANUAL) 0.34 x10^3/uL (1-3.4); LYMPHS% (MANUAL) 1 % (22-44); MONOS#(MANUAL) 2.06 x10^3/uL (0.3-2.7); MONOS% (MANUAL) 6 % (2-9); SEG#(MANUAL) 29.16 x10^3/uL (1.8-6.8); SEGS% (MANUAL) 85 % (42-75)
[2018-02-22 07:02] LABS: ANISOCYTOSIS 1+
[2018-02-22 07:04] LABS: <PLATELET ESTIMATE> DECREASED; <PLT MORPHOLOGY> NORMAL PLT MORPH
[2018-02-22] MEDS: APIXABAN 5 MG TABLET PO SCH ×2 (07:34→22:08)
[2018-02-22] MEDS: SERTRALINE 100MG TABLET PO SCH (07:34)
[2018-02-22] MEDS: SODIUM CHLORIDE FLUSH 10ML SYR IVF SCH ×2 (07:35→21:00)
[2018-02-22] MEDS: LISINOPRIL 10 MG TABLET PO SCH (07:35)
[2018-02-22 08:29] VITALS: BP 107/71
[2018-02-22] MEDS ORDERED: GLYCOPYRROLATE 1 MG TABLET PO PRN (09:00)
[2018-02-22] MEDS ORDERED: ATROPINE OPHTH SOLN 1%, 5ML PO PRN (15:30)
[2018-02-22] MEDS ORDERED: LORazepam 2 MG/ML, 1ML IVPush PRN ×2 (15:30)
[2018-02-22] MEDS ORDERED: morphine SULFATE ORAL.CONC 20 MG/ML BC PRN (15:30)
[2018-02-22] MEDS ORDERED: HYDROmorphone 2 MG/ML, 1ML IVPush PRN (15:30)
[2018-02-23] MEDS: HYDROmorphone 2 MG/ML, 1ML IVPush PRN ×8 (01:20→22:29)
[2018-02-23] MEDS: LACTATED RINGERS 1,000 ML IV SCH (02:22)
[2018-02-23] MEDS: SERTRALINE 100MG TABLET PO SCH (09:00)
[2018-02-23] MEDS: SODIUM CHLORIDE FLUSH 10ML SYR IVF SCH ×2 (09:00→21:00)
[2018-02-24] MEDS: HYDROmorphone 2 MG/ML, 1ML IVPush PRN ×3 (01:13→06:42)
[2018-02-24] MEDS: SERTRALINE 100MG TABLET PO SCH (09:00)
[2018-02-24] MEDS: SODIUM CHLORIDE FLUSH 10ML SYR IVF SCH (09:00)
== END 2018-02-24 09:48 | disposition expired | DRG 871 ==
LOC: ED 04:46 → EDIP 07:42 → 4WST 09:22 → 3NW 02-22 20:32
PROVIDERS: ADMIT Family Medicine; ATTEND Family Medicine
PROC: 0W993ZZ Drainage of Right Pleural Cavity, Percutaneous Approach (ICD-10-PCS; principal; 2018-02-20)
DX: A41.9 Sepsis, unspecified organism (principal); J96.01 Acute respiratory failure with hypoxia; J15.9 Unspecified bacterial pneumonia; C34.91 Malignant neoplasm of unspecified part of right bronchus or lung; N17.9 Acute kidney failure, unspecified; C77.9 Secondary and unspecified malignant neoplasm of lymph node, unspecified; C78.7 Secondary malignant neoplasm of liver and intrahepatic bile duct; J44.0 Chronic obstructive pulmonary disease with (acute) lower respiratory infection; J91.0 Malignant pleural effusion; N12 Tubulo-interstitial nephritis, not specified as acute or chronic; D73.5 Infarction of spleen; C73 Malignant neoplasm of thyroid gland; I10 Essential (primary) hypertension; N20.0 Calculus of kidney; E86.0 Dehydration; G89.4 Chronic pain syndrome; N28.89 Other specified disorders of kidney and ureter; Z66 Do not resuscitate; Z85.850 Personal history of malignant neoplasm of thyroid; R10.84 Generalized abdominal pain; Z87.891 Personal history of nicotine dependence; R19.7 Diarrhea, unspecified; Q85.00 Neurofibromatosis, unspecified; Z51.5 Encounter for palliative care; Z92.21 Personal history of antineoplastic chemotherapy; Z86.73 Personal history of transient ischemic attack (TIA), and cerebral infarction without residual deficits; Z86.718 Personal history of other venous thrombosis and embolism
CPT/HCPCS: 32555; 36415; 71275; 74177; 80048; 80053; 81001; 82945; 83605; 83615; 83690; 84145; 84155; 84157; 84484; 85025; 87040; 87070; 87075; 87077; 87086; 87102; 87186; 87205; 88112; 88305; 89051; 93005; 96361; 96374; 96375; 99291; G0378; J0696; J1170; J2405; J2543; Q0162; Q9967; J0360; J7030; J7120; S0028